=== PATIENT | female | born 1995 | race Asian ===

== ENCOUNTER 2017-08-27 23:36 | Emergency (ER) | payer OTHER ==
[~2017-08-27] VITALS: Ht 172.7 cm; Wt 56.7 kg
[2017-08-27 23:44] VITALS: BP 140/96
[2017-08-28 01:00] VITALS: BP 138/90
--- NOTE | 2017-08-28 01:18 | Emergency Room Report ---
History of Present Illness General Chief Complaint: General Complaint Source: Patient Present Illness HPI 22-year-old female presents with foreign body sensation in throat She reports she had a lifesaver candy, and feels like it got stuck in her throat This happened 10 minutes prior to her arrival Actually upon my initial evaluation she reports she thinks it's now completely swallowed and in her stomach She has tolerated water here and is not having any pain or foreign body sensation any longer She never vomited, and feels complete resolution Allergies: Coded Allergies: No Known Allergies (Unverified , 08/27/17) Patient History Past Medical History: see triage record Last Menstrual Period: july 31 Now: No Reviewed Nursing Documentation: PMH: Agreed; PSxH: Agreed Review of Systems All Other Systems: negative except mentioned in HPI Physical Exam Vital Signs Date Time Temp Pulse Resp B/P (MAP) Pulse Ox O2 Delivery O2 Flow Rate FiO2 08/27/17 23:39 98.5 95 18 150/94 99 Room Air 98.4 Sp02 EP Interpretation: reviewed, normal General Appearance: no apparent distress, alert, non-toxic Head: normocephalic Eyes: bilateral eye normal inspection, bilateral eye PERRL, bilateral eye EOMI ENT: normal ENT inspection, hearing grossly normal, normal pharynx, no angioedema, normal voice, moist mucus membranes Neck: normal inspection, full range of motion, supple, supple/symm/no masses Respiratory: chest non-tender, lungs clear, normal breath sounds, chest symmetrical, palpation of chest normal Cardiovascular #1: normal peripheral pulses, regular rate, rhythm Gastrointestinal: normal inspection, non tender, soft, no mass, no guarding, no rebound Musculoskeletal: back normal, gait/station normal, normal range of motion, non- tender, no calf tenderness Neurologic: alert, responsive, wrapper sizer III-XII nml as tested, motor strength/tone normal, sensory intact, speech normal Skin: normal color, no rash, warm/dry, normal turgor Lymphatic: no adenopathy Medical Decision Making Diagnostic Impression: Primary Impression: Esophageal foreign body ER Course patient has a normal exam, will recommend no interventions Last Vital Signs Date Time Temp Pulse Resp B/P (MAP) Pulse Ox O2 Delivery O2 Flow Rate FiO2 08/27/17 23:44 97.6 50 16 140/96 100 Room Air 97.6 Status: improved Disposition: HOME, SELF-CARE Condition: Improved MARTINS,DEBBIE M.D August 28, 2017 01:18
[2017-08-28 01:48] VITALS: BP 138/90
== END 2017-08-28 01:45 | disposition home or self-care (01) ==
LOC: EMR 08-28 01:06
DX: R09.89 Other specified symptoms and signs involving the circulatory and respiratory systems (principal)
CPT/HCPCS: 99282